=== PATIENT | female | born 1980 ===

== ENCOUNTER 2022-11-24 15:23 | Emergency (ER) | payer OTHER ==
[~2022-11-24] VITALS: Ht 170.2 cm; Wt 72.6 kg
[2022-11-24 16:09] LABS: BASOPHILS % (AUTO) 0.2 % (0.0-5.0); HEMATOCRIT 21.6 % (36-48); LYMPHOCYTES % (AUTO) 3.6 % (21.0-51.0); MEAN CORPUSCULAR HEMOGLOBIN 33.9 pg (27.0-33.0); MEAN CORPUSCULAR HGB CONC 36.6 g/dL (32.0-36.0); MEAN CORPUSCULAR VOLUME 92.7 fL (79-99); MONOCYTES % (AUTO) 2.9 % (3.0-13.0); NEUTROPHILS % (AUTO) 92.6 % (40.0-77.0); PLATELET COUNT (AUTO) 53 K/uL (130-400); RED BLOOD CELL COUNT(AUTO) 2.33 MIL/uL (4.00-5.50); RED CELL DISTRIBUTION WIDTH 14.8 % (11.0-15.5); WHITE BLOOD COUNT (AUTO) 8.7 K/uL (4.8-10.8)
[2022-11-24 16:14] LABS: INR 0.96 (0.85-1.15); PROTHROMBIN TIME 10.5 SEC (9.6-11.6)
[2022-11-24 16:16] LABS: PARTIAL THROMBOPLASTIN TIME 23.7 SEC (26.3-35.5)
[2022-11-24] MEDS ORDERED: GADOTERATE MEGLUMINE 10 MMOL/20 ML VIAL IV ONE (16:29)
[2022-11-24 16:30] LABS: ALBUMIN 3.1 g/dL (3.5-5.0); CREATININE 0.8 mg/dL (0.5-1.5); TOTAL PROTEIN, SERUM 5.9 g/dL (6.0-8.3)
[2022-11-24] MEDS ORDERED: SOLU-MEDROL 125MG VIAL IVP ONE (16:30)
[2022-11-24] MEDS ORDERED: ALBUTEROL 0.083% 2.5 MG/3 ML INH IH ONE (16:30)
[2022-11-24] MEDS ORDERED: POTASSIUM CHLORIDE 20 MEQ/100 ML BAG IV ONE (16:30)
[2022-11-24] MEDS ORDERED: POTASSIUM CHLORIDE 10% ELIXIR 20 MEQ/15 ML UDCUP PO ONE (16:30)
[2022-11-24] MEDS ORDERED: IPRATROPIUM 0.5 MG/2.5 ML INH IH ONE (16:30)
[2022-11-24 16:32] LABS: POTASSIUM 2.5 mmol/L (3.5-5.1)
[2022-11-24 17:06] LABS: B-TYPE NATRIURETIC PEPTIDE 8 pg/mL (0-100)
[2022-11-24] MEDS ORDERED: MAGNESIUM 2GM PREMIX 50ML 50 ML IV ONE ×2 (17:27→18:00)
[2022-11-24 17:30] LABS: PLATELET MORPHOLOGY COMMENT MARKED DECREASE
[2022-11-24 18:30] LABS: APPEARANCE,URINE CLEAR (CLEAR); BILIRUBIN,URINE NEGATIVE (NEGATIVE); COLOR,URINE COLORLESS (YELLOW); GLUCOSE, URINE (UA) NEGATIVE (NEGATIVE); KETONES,URINE NEGATIVE (NEGATIVE); LEUKOCYTE ESTERASE ,URINE NEGATIVE Leu/uL (NEGATIVE); NITRATE,URINE NEGATIVE (NEGATIVE); OCCULT BLOOD,URINE NEGATIVE (NEGATIVE); PROTEIN,URINE NEGATIVE (NEGATIVE); UROBILINOGEN,URINE 0.2 mg/dL (0.2-1.0)
[2022-11-24 20:00] VITALS: BP 130/81
== END 2022-11-24 20:13 | disposition left against medical advice (07) ==
LOC: EDH 15:23
DX: R53.1 Weakness (principal); E87.6 Hypokalemia; E83.42 Hypomagnesemia
CPT/HCPCS: 99285; 70553; 96365; 70450; 71045; 96366; 96375; 82550; 83721; 83735; 84484; 80053; 83880; 85025; 85610; 85730; 82948; 81003; 36415; 93005; J3475; J2930; J3480; A9575